=== PATIENT | male | born 1980 | race Caucasian/White ===

== ENCOUNTER 2020-06-25 15:08 | Outpatient (CLI) | payer OTHER | END 2020-06-25 15:09 | disposition home or self-care (01) | LOC: CSHMRI 15:08 | PROVIDERS: ATTEND Neurological Surgery | DX: M62.830 Muscle spasm of back (principal); M51.16 Intervertebral disc disorders with radiculopathy, lumbar region | CPT/HCPCS: 72110; 72148 ==